=== PATIENT | female | born 1965 | race Two or more races ===

== ENCOUNTER 2024-05-05 21:58 | Emergency (ER) | payer OTHER ==
[~2024-05-05] VITALS: Ht 167.6 cm; Wt 45.8 kg
[2024-05-05] MEDS ORDERED: FOLIC ACID 5 MG/ML VIAL IV ONE (22:30)
[2024-05-05] MEDS ORDERED: THIAMINE HCL 100 MG/ML 2 ML VIAL IV ONE (22:30)
[2024-05-05] MEDS ORDERED: ONDANSETRON HCL 2 MG/ML VIAL IV ONE (22:30)
[2024-05-05] MEDS ORDERED: 0.9 % SODIUM CHLORIDE 1,000 ML IV ONE (22:30)
[2024-05-05] MEDS ORDERED: FAMOtidine 10 MG/ML (4ML VIAL) IV ONE (22:30)
[2024-05-05] MEDS ORDERED: MULTIVIT INFUSN,ADULT 4,VIT K 10 ML VIAL IV ONE (22:30)
[2024-05-05] MEDS ORDERED: LORazepam 2 MG/ML VIAL IM ONE (22:30)
[2024-05-05] MEDS ORDERED: ONDANSETRON HCL 2 MG/ML VIAL ONE (23:53)
[2024-05-05] MEDS ORDERED: THIAMINE HCL 100 MG/ML 2 ML VIAL ONE (23:53)
[2024-05-05] MEDS ORDERED: FAMOTIDINE/PF 20 MG/2 ML VIAL ONE (23:53)
[2024-05-06] MEDS ORDERED: LORazepam 2 MG/ML DISP.SYRIN ONE (00:25)
[2024-05-06 01:15] LABS: ALBUMIN 4.2 gm/dL (3.4-5.0); BILIRUBIN TOTAL 1.19 mg/dL (0.3-1.2); CALCIUM 9.4 mg/dL (8.5-10.1); CREATININE SERUM 0.56 mg/dL (0.55-1.02); GLOBULINA 3.6 G/DL (2.4-3.5); POTASSIUM 4.4 mEq/L (3.5-5.1); TOTAL PROTEIN 7.8 gm/dL (6.4-8.2)
[2024-05-06 01:47] LABS: GFR 110.8
[2024-05-06 02:43] LABS: HEMATOCRIT 31.3 % (36.0-45.00); HEMOGLOBIN 10.5 g/dL (12.0-15.00); MEAN CELL VOLUME 85.3 fL (80.00-100.00); MEAN CORPUSCULAR HEMOGLOBIN 28.7 pg (27.00-32.0); MEAN CORPUSCULAR HGB CONC 33.6 g/dl (32.0-36.0); PLATELET COUNT 186 K/uL (150-450); RED BLOOD COUNT 3.67 M/uL (4.00-6.00); RED CELL DISTRIBUTION WIDTH 12.8 % (11.5-14.5)
[2024-05-06 06:30] LABS: PH,URINE 6.5 (5.0-8.0); URINE BILIRRUBIN Negative (NEGATIVE); URINE BLOOD Negative; URINE COLOR Yellow; URINE GLUCOSE Negative (NEGATIVE); URINE KETONE Negative (NEGATIVE); URINE LEUKOCYTE Small; URINE NITRATE Negative; URINE PROTEIN Negative (NEGATIVE)
[2024-05-06 06:32] LABS: COCAINE NEGATIVE (NEGATIVE); METHADONE NEGATIVE (NEGATIVE); OPIATES NEGATIVE (NEGATIVE); THC ( Cannabinoids) POSITIVE (NEGATIVE)
[2024-05-06 06:34] LABS: URINE BACTERIA 17.1 uL (0.0-1933); URINE EPITHELIAL CELLS 3.3 uL (0.0-38.8); URINE RBC 12.6 uL (0.0-20.8); URINE WBC 22.7 uL (0.0-23.2)
[2024-05-06 06:41] LABS: URINE APPEARANCE CLEAR
== END 2024-05-06 08:16 ==
LOC: ER 21:58
PROVIDERS: General Practice
DX: F12.929 Cannabis use, unspecified with intoxication, unspecified (principal); Z88.8 Allergy status to other drugs, medicaments and biological substances